=== PATIENT | male | born 1995 | race Two or more races ===

== ENCOUNTER 2017-01-12 21:58 | Emergency (ER) | payer OTHER ==
--- NOTE | 2017-01-12 22:02 | EDPHY ---
H & P Time Seen by Provider: 01/12/17 22:02 Constitutional: Initial Vital Signs Temperature (C) 37.1 C 01/12/17 22:03 Heart Rate 100 01/12/17 22:03 Respiratory Rate 16 01/12/17 22:03 Blood Pressure 150/99 H 01/12/17 22:03 O2 Sat (%) 99 01/12/17 22:03 O2 Delivery Mode Room Air Allergies/Adverse Reactions: No Known Allergies Allergy (Unverified 01/12/17 22:05) Home Medications: Medication Instructions Recorded NK [No Known Home Meds] 01/12/17 Medical Decision Making - Diagnostics Imaging: Discussed imaging studies w/ manager call center Radiologist, I viewed and interpreted images myself - Diagnostics Imaging Results: Imaging Impressions Cervical Spine CT 01/12/17 22:10 Impression: 1. No acute posttraumatic abnormality identified. If there is persistent pain or neurologic deficit, consider MRI and/or flexion and extension views if clinically indicated. 2. 4 mm right upper lobe nodule, incompletely visualized. If the patient is a smoker or is high risk, unenhanced low dose chest CT for follow up in 12 months is considered optional. Otherwise, no further follow up is needed per Fleischner Society criteria. Findings discussed with Juan Arzola today at [address] scan has been reviewed shows no acute bony abnormalities there is a lung nodule present. I did discuss this with the patient. 2318: I did discuss his patient CT with him. Additionally I went evaluated him I was able to clear his cervical spine collar is he has no midline cervical spine pain. Did have some mild paravertebral pain consistent with a neck strain. Recommend icing his neck and anti-inflammatory pain medicine. Return emergency room there is any worsening symptoms questions or concerns. Additionally he has no numbness or tingling anywhere or arm weakness. He feels fine is comfortable this plan. Additionally went over lung nodule. He needs to follow this up [address] scan. (Juan Arzola) ED Course/Re-evaluation: CHIEF COMPLAINT: Neck pain HISTORY OF PRESENT ILLNESS: The patient is a 21 y/o male arriving via EMS in a [facility] who complains of neck pain secondary to playing basketball. While playing basketball he was hit in the face by a shoulder. His head rapidly twisted to the left and he had sudden cervical pain. He states his pain is along the superior medial and lateral aspects of his neck. Denies prior neck injuries or surgeries, loss of consciousness, anti or retrograde amnesia, vomiting, nausea, or other pertinent symptoms. REVIEW OF SYSTEMS: A 10 point review of systems was performed and is negative with the exception of the elements mentioned in the history of present illness. PHYSICAL EXAM: HR, BP, O2 Sat, RR. Temp noted General Appearance: Alert, well hydrated, appropriate, and non-toxic appearing. Head: Atraumatic without scalp tenderness or obvious injury Eyes: Pupils equal, round, reactive to light and accommodation, EOMI, no trauma , no injection. Ears: Clear bilaterally, no perforation, normal landmarks Nose: Atraumatic, no rhinorrhea, clear. Throat: Mucus membranes moist. Neck: Central and lateral tenderness in his upper cervical spine along the occipital insertion. C-collar left in place. Supple, 2+ carotid upstroke, no lymphadenopathy. Respiratory: No retractions, no distress, no wheezes, and no accessory muscle use. Lungs are clear to auscultation bilaterally. Cardiovascular: Regular rate and rhythm, no murmurs, rubs, or gallops. Good capillary refill all extremities. Gastrointestinal: Abdomen is soft, nontender, non-distended, no masses, no rebound, no guarding, no peritoneal signs. Musculoskeletal: Normal active ROM of all extremities, atraumatic. Neurological: Alert, appropriate, and interactive. Non-focal neuro. Skin: No rashes, good turgor, no nodules on palpation. Past medical history: Denies Past surgical history: Denies Family history: Noncontributory Social history: Student at , non-smoker, single DIAGNOSTICS/PROCEDURES/CRITICAL CARE TIME: Neck CT: To be interpreted by Dr. Arzola DIFFERENTIAL DIAGNOSIS: The differential diagnosis for the patient's neck pain included but was not limited to musculo-skeletal pain, epidural abscess, herniated disk, spinal fracture. MEDICAL DECISION MAKING: The patient is a 21 y/o male who arrives via EMS in a C-collar and presents with neck pain secondary to being hit while playing basketball. He has central and lateral tenderness in his upper cervical spine along the occipital insertion. Plan on neck CT to rule out cervical injury. He denies pain medication at this time. Reassessed patient and discussed imaging results. I have provided Dr. Indira Darden, neurosurgeon, for follow up if his symptoms do not improve. Return precautions provided; he is comfortable with this plan. Signed out to Dr. Arzola at end of shift. He will interpret the CT results. ( Brandon Price) Departure - Departure Disposition: Home, Routine, Self-Care Clinical Impression: Neck pain Condition: Good Instructions: Neck Pain (ED), Pulmonary Nodules (ED) Additional Instructions: 1. Take 800 mg of ibuprofen every 6-8 hours for pain. 2. Follow up with Dr. Indira Darden, neurosurgeon, in the next week for unimproved symptoms. 3. Return to the ED if you experience numbness, weakness, difficulty breathing, chest pain, or other worsening of your symptoms. 4. You have a lung nodule on her CT scan this needs to be followed up in approximately 1 year with her primary care doctor. Referrals: Patient,NotPresent [Primary Care Provider] - As per Instructions Kristie Darden MD [Medical Doctor] - As per Instructions Report Scribed for: Brandon Price Report Scribed by: Camila Vasquez Date of Report: 01/12/17 Time of Report: 22:21
[2017-01-12 22:05] VITALS: RESP 16
[2017-01-12 23:45] VITALS: BP 144/90; PULSE 95; TEMP 97.7; O2SAT 96
== END 2017-01-12 23:45 | disposition home or self-care (01) ==
DX: S19.9XXA Unspecified injury of neck, initial encounter (principal); W51.XXXA Accidental striking against or bumped into by another person, initial encounter; Y99.8 Other external cause status; Y93.67 Activity, basketball